=== PATIENT | female | born 1950 | race Caucasian/White ===

== ENCOUNTER 2017-06-20 14:31 | Emergency (ER) | payer OTHER, MEDICAID ==
[~2017-06-20] VITALS: Ht 162.6 cm; Wt 67.0 kg
[2017-06-20] MEDS ORDERED: ACETAMINOPHEN 325MG TABLET PO ONE (15:30)
[2017-06-20] MEDS ORDERED: LORAZEPAM 0.5MG TABLET PO ONE (15:45)
[2017-06-20] MEDS ORDERED: ACETAMINOPHEN 500MG TABLET ONE (16:09)
[2017-06-20 17:25] VITALS: BP 101/60
== END 2017-06-20 17:38 | disposition home or self-care (01) ==
LOC: ER 14:55
DX: S10.93XA Contusion of unspecified part of neck, initial encounter (principal); S30.0XXA Contusion of lower back and pelvis, initial encounter; S70.01XA Contusion of right hip, initial encounter; S80.01XA Contusion of right knee, initial encounter; E11.9 Type 2 diabetes mellitus without complications; E78.00 Pure hypercholesterolemia, unspecified; F41.9 Anxiety disorder, unspecified; Z88.6 Allergy status to analgesic agent; V43.52XA Car driver injured in collision with other type car in traffic accident, initial encounter; Y93.89 Activity, other specified; Y92.488 Other paved roadways as the place of occurrence of the external cause
CPT/HCPCS: 71010; 72192; 73562; 99284